=== PATIENT | male | born 1955 | race Caucasian/White ===

== ENCOUNTER → 2018-07-03 | Outpatient (CLI) | payer OTHER ==
[~2018-07-03] MED LIST: CORTEF10 MG PO; FLORINEF ACETA0.1 MG PO; GLUCOSAMIN-CHO1 EACH PO; LEVOXYL150 MCG PO; PROTONIX40 M4 PO
== END ==
LOC: CAT 15:20
DX: Z13.6 Encounter for screening for cardiovascular disorders (principal); E78.00 Pure hypercholesterolemia, unspecified; I25.10 Atherosclerotic heart disease of native coronary artery without angina pectoris